=== PATIENT | female | born 1945 | race Caucasian/White ===

== ENCOUNTER 2018-02-05 17:22 | Emergency (ER) | payer MEDICARE, OTHER ==
[2018-02-05] MEDS ORDERED: ACETAMINOPHEN TAB 500 MG TAB PO STA (17:59)
[2018-02-05] MEDS ORDERED: SODIUM CHLORIDE 0.9% 1,000 ML IV STA (17:59)
[2018-02-05] MEDS ORDERED: diphenhydrAMINE 50 MG/ML 1 ML VIAL IVP STA (18:00)
[2018-02-05] MEDS ORDERED: METOCLOPRAMIDE 5 MG/ML 2 ML VIAL IVP STA (18:00)
--- NOTE | 2018-02-05 21:10 | ED ---
General Adult HPI - General Chief complaint: Headache Stated complaint: Possible TIA, SOB Source: patient Mode of arrival: ambulatory Limitations: no limitations - History of Present Illness Initial comments: Dictation was produced using [email or web address] dictation software. please excuse any grammatical, word or spelling errors. Chief Complaint: 72-year-old female with past medical history of TIA percents with chief complaint of headache. History of Present Illness: Patient states she's been having headaches for the last 3-4 weeks. She was at [facility] earlier this week where she was admitted patient for transient ischemic attack patient she had an MRI and was told that it was normal. Patient states she has this tingling to the posterior occiput of her head. Denies any neck pain. Denies any fever, chills or night sweats. denies confusion. The ROS documented in this emergency department record has been reviewed and confirmed by me. Those systems with pertinent positive or negative responses have been documented in the HPI. All other systems are other negative and/or noncontributory. - Related Data Home Medications Medication Instructions Recorded Confirmed Folic Acid 1 mg PO DAILY 12/12/14 02/05/18 Hydroxychloroquine Sulfate 200 mg PO DAILY 12/12/14 02/05/18 [Plaquenil] Levothyroxine Sodium [Synthroid] 50 mcg PO HS 12/12/14 02/05/18 Methotrexate Sodium [Methotrexate] 17.5 mg PO TH 12/12/14 02/05/18 Naproxen 500 mg PO DAILY 12/12/14 02/05/18 Adalimumab [Humira Pen] 40 mg SQ Q14D 02/05/18 02/05/18 Aspirin 81 mg PO DAILY 02/05/18 02/05/18 Atorvastatin [Lipitor] 40 mg PO HS 02/05/18 02/05/18 Calcium/Vitamin D3 1 tab PO DAILY 02/05/18 02/05/18 Multivitamins, Thera [Multivitamin 1 tab PO DAILY 02/05/18 02/05/18 (formulary)] Prolia(Unknown Dose) 1 dose SQ Q180D 02/05/18 02/05/18 traMADol HCl [Ultram] 50 mg PO DAILY 02/05/18 02/05/18 Allergies Allergy/AdvReac Type Severity Reaction Status Date / Time aspirin [From Percodan] Allergy Unknown Verified 11/23/18 18:05 oxycodone HCl [From Percodan] Allergy Unknown Verified 02/05/18 18:05 oxycodone terephthalate Allergy Unknown Verified 02/05/18 18:05 [From Percodan] Penicillins Allergy Unknown Verified 02/05/18 18:05 Sulfa (Sulfonamide Allergy Unknown Verified 02/05/18 18:05 Antibiotics) Review of Systems ROS Statement: Those systems with pertinent positive or pertinent negative responses have been documented in the HPI. ROS Other: All systems not noted in ROS Statement are negative. Past Medical History Past Medical History: Rheumatoid Arthritis (RA), Thyroid Disorder Additional Past Medical History / Comment(s): spinal stenosis, decreased appetite since apr. TIA History of Any Multi-Drug Resistant Organisms: None Reported Past Surgical History: Orthopedic Surgery Additional Past Surgical History / Comment(s): bilateral foot surgery Past Psychological History: Anxiety Smoking Status: Former smoker Past Alcohol Use History: Daily Past Drug Use History: None Reported General Exam - General Exam Comments Initial Comments: PHYSICAL EXAM: General Impression: Alert and oriented x3, not in acute distress HEENT: Normocephalic atraumatic, extra-ocular movements intact, pupils equal and reactive to light bilaterally, mucous membranes moist. Cardiovascular: Heart regular rate and rhythm, S1&S2 audible, no murmurs, rubs or gallops Chest: Lungs clear to auscultation bilaterally, no rhonchi, no wheeze, no rales Abdomen: Bowel sounds present, abdomen soft, non-tender, non-distended, no organomegaly Musculoskeletal: Pulses present and equal in all extremities, no peripheral edema Motor: Power 5/5 bilaterally, no focal deficits noted Neurological: CN II-XII grossly intact, no focal motor or sensory deficits noted Skin: Intact with no visualized rashes Psych: Normal affect and mood Limitations: no limitations Course Vital Signs 02/05/18 17:25 Temperature 97.6 F Pulse Rate 85 Respiratory 20 Rate Blood Pressure 186/103 O2 Sat by Pulse 99 Oximetry Medical Decision Making - Medical Decision Making ED course: 72 yOld female with a primary benign headache. No clinical suspicion of subarachnoid or intracranial bleed. No indication for CT given that there is no changes in her symptoms since she had an MRI. Vital signs upon arrival shows blood pressure 186 of 103. Patient has benign neuro exam. He is given headache cocktail. Her symptoms are improved after by mouth she is observed in the emergency Department with improvement of symptoms. Patient be discharged. Patient told to address her headache symptoms with her neurologist. Patient is understandable and agreeable to plan. Disposition Clinical Impression: Headache Disposition: HOME SELF-CARE Condition: Good Instructions: Acute Headache (ED) Is patient prescribed a controlled substance at d/c from ED?: No Referrals: Jennifer Shelton DO [Primary Care Provider] - 1-2 days Time of Disposition: 21:09
[2018-02-05 21:24] VITALS: BP 133/79; PULSE 67; RESP 18; TEMP 98
== END 2018-02-05 21:24 | disposition home or self-care (01) ==
LOC: EC 17:22
DX: R51 Headache (principal); R20.2 Paresthesia of skin; M06.9 Rheumatoid arthritis, unspecified; E07.9 Disorder of thyroid, unspecified; Z87.891 Personal history of nicotine dependence; Z88.0 Allergy status to penicillin; Z88.2 Allergy status to sulfonamides; Z88.5 Allergy status to narcotic agent; Z88.6 Allergy status to analgesic agent; Z79.1 Long term (current) use of non-steroidal anti-inflammatories (NSAID); Z79.82 Long term (current) use of aspirin; Z79.891 Long term (current) use of opiate analgesic; Z79.899 Other long term (current) drug therapy; Z86.73 Personal history of transient ischemic attack (TIA), and cerebral infarction without residual deficits; Z87.39 Personal history of other diseases of the musculoskeletal system and connective tissue
CPT/HCPCS: 99283; 96374; 96375; 96361 ×2; J1200; J2765